=== PATIENT | male | born 1940 | race Caucasian/White ===

== ENCOUNTER 2020-12-31 11:53 | Inpatient (IN) | payer MEDICARE, OTHER ==
[2020-12-31 12:47] LABS: #Eosinphils 0.1 thou/uL (0.0-0.7); #Lymphocytes 1.6 thou/uL (1.20-3.40); #Monocytes 0.6 thou/uL (0.11-0.59); #Neutrophils 12.2 thou/uL (1.40-6.50); %Basophils 0.3 % (0.0-1.0); %Eosinophils 0.8 % (0.0-10.0); %Neutrophils 83.8 % (42.0-75.0); Hemoglobin 13.9 g/dL (14.0-18.0); Mean Corpuscular HGB CONC 33.1 g/dL (32.0-36.0); Mean Corpuscular Hemoglobin 31.8 pg (27.0-31.0); Mean Platelet Volume 6.4 fL (7.4-10.4); Platelet Count 226 thou/uL (130-400); RBC Distribution Width 12.7 % (11.5-14.5); Red Blood Cell (RBC) Count 4.39 mill/uL (4.70-6.10); White Blood Cell (WBC) Count 14.6 thou/uL (4.8-10.8)
[2020-12-31 13:05] LABS: ALT (SGPT) 16 U/L (8-55); AST (SGOT) 33 U/L (5-34); Alkaline Phosphatase 54 U/L (40-110); Anion Gap 14 mmol/L (10-20); BUN (Urea Nitrogen) 14 mg/dL (8.4-25.7); Bilirubin, Total 0.5 mg/dL (0.2-1.2); CK (CPK) 163 U/L (30-200); Calc. Creatinine Clearance 0 mL/min (70-130); Calcium 9.5 mg/dL (7.8-10.44); Carbon Dioxide 23 mmol/L (23-31); Chloride 107 mmol/L (98-107); Globulin 3.2 g/dL (2.4-3.5); Glucose 117 mg/dL (83-110); Lipase 19 U/L (8-78); Protein, Total 7.2 g/dL (5.8-8.1); Sodium 140 mmol/L (136-145)
[2020-12-31] MEDS ORDERED: Aspirin Chewable 81 MG TAB ONE (13:21)
[2020-12-31] MEDS ORDERED: Nitroglycerin 2% Ointment 1 INCH/1 GM Packet ONE (13:21)
[2020-12-31] MEDS ORDERED: Enoxaparin Sodium 100 MG/ML SYRINGE ONE (13:37)
[2020-12-31 13:41] LABS: CKMB 23.3 ng/mL (0-6.6)
[2020-12-31] MEDS ORDERED: Ondansetron PF 4 MG/2 ML Vial ONE (14:18)
[2020-12-31] MEDS ORDERED: Aspirin Chewable 81 MG TAB PO SCH (15:30)
[2020-12-31] MEDS ORDERED: Nitroglycerin 0.4 MG TAB (25 Tab Bottle) SL PRN (15:30)
[2020-12-31 16:37] LABS: Hemoglobin A1c 5.5 % (4.0-6.0)
[2020-12-31 17:47] LABS: Troponin I 10.403 ng/mL (< 0.028)
[2020-12-31 18:04] LABS: Prothrombin Time 13.4 sec (12.0-14.7)
[2020-12-31 19:48] LABS: Troponin I 13.589 ng/mL (< 0.028)
[2020-12-31] MEDS ORDERED: Metoprolol Tartrate 25 MG TAB PO SCH (21:00)
[2020-12-31] MEDS: Atorvastatin Calcium 40 MG TAB PO SCH (22:00)
[2020-12-31 22:45] LABS: Troponin I 22.192 ng/mL (< 0.028)
[2020-12-31] MEDS ORDERED: Mag-Al 1200 mg/1200 mg/30 ML UDCUP PO SCH (23:00)
[2020-12-31] MEDS ORDERED: Famotidine 20 MG TAB ONE (23:04)
[2020-12-31] MEDS ORDERED: Mag-Al 1200 mg/1200 mg/30 ML UDCUP ONE (23:04)
[2020-12-31 23:11] VITALS: BMI 31.4
[2020-12-31] MEDS ORDERED: Famotidine 20 MG TAB PO SCH (23:30)
[2021-01-01] MEDS ORDERED: Enoxaparin Sodium 100 MG/ML SYRINGE SC SCH ×3 (01:00→09:00)
[2021-01-01] MEDS ORDERED: Enoxaparin Sodium 100 MG/ML SYRINGE ONE (01:25)
[2021-01-01 01:42] LABS: Troponin I 23.435 ng/mL (< 0.028)
[2021-01-01 05:10] LABS: #Eosinphils 0.3 thou/uL (0.0-0.7); #Lymphocytes 1.4 thou/uL (1.20-3.40); #Monocytes 0.7 thou/uL (0.11-0.59); #Neutrophils 7.3 thou/uL (1.40-6.50); %Basophils 0.5 % (0.0-1.0); %Eosinophils 2.6 % (0.0-10.0); %Lymphocytes 14.7 % (21.0-51.0); %Monocytes 7.5 % (0.0-10.0); %Neutrophils 74.8 % (42.0-75.0); Mean Corpuscular HGB CONC 32.8 g/dL (32.0-36.0); Mean Corpuscular Hemoglobin 31.6 pg (27.0-31.0); Mean Corpuscular Volume 96.3 fL (78.0-98.0); Mean Platelet Volume 6.5 fL (7.4-10.4); Platelet Count 214 thou/uL (130-400); RBC Distribution Width 12.4 % (11.5-14.5); Red Blood Cell (RBC) Count 3.79 mill/uL (4.70-6.10); White Blood Cell (WBC) Count 9.8 thou/uL (4.8-10.8)
[2021-01-01 05:31] LABS: Anion Gap 11 mmol/L (10-20); BUN (Urea Nitrogen) 17 mg/dL (8.4-25.7); Calc. Creatinine Clearance 86 mL/min (70-130); Calcium 9.1 mg/dL (7.8-10.44); Carbon Dioxide 29 mmol/L (23-31); Chloride 106 mmol/L (98-107); Cholesterol 133 mg/dl (< 200 Desired); Glucose 100 mg/dL (83-110); HDL Cholesterol 44 mg/dL (>60 Neg Risk); LDL Cholesterol, Calculated 72 mg/dL; Sodium 142 mmol/L (136-145); Triglycerides 87 mg/dL (Less than 150)
[2021-01-01 05:38] LABS: Troponin I 20.599 ng/mL (< 0.028)
[2021-01-01] MEDS ORDERED: Iopamidol 370 76% 100 ML VIAL ONE (09:51)
[2021-01-01] MEDS ORDERED: Iopamidol 370 76% 50 ML VIAL FS ONE (09:51)
[2021-01-01] MEDS ORDERED: Famotidine 20 MG TAB ONE (10:23)
[2021-01-01] MEDS: Famotidine 20 MG TAB PO SCH ×2 (10:27→19:56)
[2021-01-01 11:37] LABS: SARS-CoV-2 PCR by NAA Not Detected (NotDetected)
[2021-01-01 12:37] LABS: Critical Call Chem Troponin I RESULT DECREASING
[2021-01-01] MEDS ORDERED: Lidocaine 1% (PF) 30 ML VIAL ONE (12:51)
[2021-01-01] MEDS ORDERED: Heparin 10,000 UNITS/ 10 ML VIAL ONE (14:04)
[2021-01-01] MEDS ORDERED: TICAGRELOR 90 MG TABLET ONE (14:06)
[2021-01-01] MEDS ORDERED: Adenosine 6 MG/2 ML VIAL ONE (14:15)
[2021-01-01] MEDS ORDERED: Sodium Chloride 0.9% 500 ML IV SCH (14:30)
[2021-01-01] MEDS ORDERED: Promethazine HCl 12.5 MG in Sodium Chloride 0.9% 50 ML IVPB PRN (20:17)
[2021-01-01] MEDS ORDERED: Ondansetron PF 4 MG/2 ML Vial IVP PRN (20:17)
[2021-01-01] MEDS: Ondansetron PF 4 MG/2 ML Vial IVP PRN ×2 (20:41→20:42)
[2021-01-01] MEDS: TICAGRELOR 90 MG TABLET PO SCH (20:42)
[2021-01-01] MEDS: Atorvastatin Calcium 40 MG TAB PO SCH (20:42)
[2021-01-02 04:45] LABS: #Eosinphils 0.2 thou/uL (0.0-0.7); #Lymphocytes 1.3 thou/uL (1.20-3.40); #Monocytes 0.7 thou/uL (0.11-0.59); #Neutrophils 6.1 thou/uL (1.40-6.50); %Basophils 0.3 % (0.0-1.0); %Lymphocytes 15.9 % (21.0-51.0); %Monocytes 7.9 % (0.0-10.0); Hemoglobin 11.9 g/dL (14.0-18.0); Mean Corpuscular HGB CONC 33.5 g/dL (32.0-36.0); Mean Corpuscular Volume 95.7 fL (78.0-98.0); Mean Platelet Volume 6.5 fL (7.4-10.4); Platelet Count 205 thou/uL (130-400); RBC Distribution Width 12.5 % (11.5-14.5); Red Blood Cell (RBC) Count 3.73 mill/uL (4.70-6.10); White Blood Cell (WBC) Count 8.4 thou/uL (4.8-10.8)
[2021-01-02 05:06] LABS: ALT (SGPT) 18 U/L (8-55); AST (SGOT) 49 U/L (5-34); Albumin 3.4 g/dL (3.4-4.8); Alkaline Phosphatase 45 U/L (40-110); Anion Gap 9 mmol/L (10-20); BUN (Urea Nitrogen) 15 mg/dL (8.4-25.7); Bilirubin, Total 0.7 mg/dL (0.2-1.2); Calc. Creatinine Clearance 91 mL/min (70-130); Calcium 8.7 mg/dL (7.8-10.44); Carbon Dioxide 30 mmol/L (23-31); Chloride 104 mmol/L (98-107); Globulin 2.6 g/dL (2.4-3.5); Glucose 90 mg/dL (83-110); Potassium 3.8 mmol/L (3.5-5.1); Sodium 139 mmol/L (136-145)
[2021-01-02] MEDS: Aspirin Chewable 81 MG TAB PO SCH (09:12)
[2021-01-02] MEDS: TICAGRELOR 90 MG TABLET PO SCH ×2 (09:13→21:33)
[2021-01-02] MEDS: Famotidine 20 MG TAB PO SCH ×2 (09:13→21:33)
[2021-01-02] MEDS ORDERED: Enoxaparin Sodium 40 MG/0.4 ML SYRINGE SC SCH (15:45)
[2021-01-02] MEDS: Carvedilol 3.125 MG TAB PO SCH (16:46)
[2021-01-02] MEDS: Atorvastatin Calcium 40 MG TAB PO SCH (21:33)
[2021-01-03] MEDS ORDERED: Lisinopril 2.5 MG TAB PO SCH (09:00)
[2021-01-03] MEDS: Aspirin Chewable 81 MG TAB PO SCH (09:53)
[2021-01-03] MEDS: TICAGRELOR 90 MG TABLET PO SCH ×2 (09:53→21:24)
[2021-01-03] MEDS: Famotidine 20 MG TAB PO SCH ×2 (09:54→21:25)
[2021-01-03] MEDS: Carvedilol 3.125 MG TAB PO SCH ×2 (09:54→17:34)
[2021-01-03] MEDS: Lisinopril 2.5 MG TAB PO SCH (09:54)
[2021-01-03] MEDS: Enoxaparin Sodium 40 MG/0.4 ML SYRINGE SC SCH (09:55)
[2021-01-03] MEDS: Atorvastatin Calcium 40 MG TAB PO SCH (21:25)
[2021-01-04 05:03] LABS: #Eosinphils 0.5 thou/uL (0.0-0.7); #Lymphocytes 1.3 thou/uL (1.20-3.40); #Monocytes 0.6 thou/uL (0.11-0.59); #Neutrophils 6.2 thou/uL (1.40-6.50); %Basophils 0.6 % (0.0-1.0); %Eosinophils 5.3 % (0.0-10.0); %Neutrophils 72.1 % (42.0-75.0); Mean Corpuscular HGB CONC 32.2 g/dL (32.0-36.0); Mean Corpuscular Volume 96.5 fL (78.0-98.0); Mean Platelet Volume 6.9 fL (7.4-10.4); Platelet Count 218 thou/uL (130-400); RBC Distribution Width 12.6 % (11.5-14.5); Red Blood Cell (RBC) Count 3.87 mill/uL (4.70-6.10); White Blood Cell (WBC) Count 8.5 thou/uL (4.8-10.8)
[2021-01-04 05:32] LABS: Anion Gap 11 mmol/L (10-20); BUN (Urea Nitrogen) 16 mg/dL (8.4-25.7); Calc. Creatinine Clearance 82 mL/min (70-130); Calcium 8.7 mg/dL (7.8-10.44); Carbon Dioxide 27 mmol/L (23-31); Chloride 104 mmol/L (98-107); Glucose 102 mg/dL (83-110); Potassium 3.7 mmol/L (3.5-5.1); Sodium 138 mmol/L (136-145)
[2021-01-04] MEDS: Aspirin Chewable 81 MG TAB PO SCH (09:11)
[2021-01-04] MEDS: Enoxaparin Sodium 40 MG/0.4 ML SYRINGE SC SCH (09:11)
[2021-01-04] MEDS: Lisinopril 2.5 MG TAB PO SCH (09:12)
[2021-01-04] MEDS: Famotidine 20 MG TAB PO SCH (09:12)
[2021-01-04] MEDS: Carvedilol 3.125 MG TAB PO SCH ×2 (09:12→16:32)
[2021-01-04] MEDS: TICAGRELOR 90 MG TABLET PO SCH (09:12)
[2021-01-04 15:56] VITALS: BP 111/59; TEMP 97.8
== END 2021-01-04 17:14 | disposition home or self-care (01) | DRG 247 ==
LOC: ERS 11:53 → OBSVTOIN 15:31 → EEVIPCON 15:31 → ERHOLD 15:31 → 2NO 16:07
PROVIDERS: ADMIT Internal Medicine; ATTEND Internal Medicine
PROC: 027034Z Dilation of Coronary Artery, One Artery with Drug-eluting Intraluminal Device, Percutaneous Approach (ICD-10-PCS; principal; 2021-01-01)
PROC: 4A023N7 Measurement of Cardiac Sampling and Pressure, Left Heart, Percutaneous Approach (ICD-10-PCS; 2021-01-01)
PROC: B2111ZZ Fluoroscopy of Multiple Coronary Arteries using Low Osmolar Contrast (ICD-10-PCS; 2021-01-01)
DX: I21.4 Non-ST elevation (NSTEMI) myocardial infarction (principal); I10 Essential (primary) hypertension; E78.5 Hyperlipidemia, unspecified; I25.10 Atherosclerotic heart disease of native coronary artery without angina pectoris; J44.9 Chronic obstructive pulmonary disease, unspecified; Z20.822 Contact with and (suspected) exposure to COVID-19; Z87.891 Personal history of nicotine dependence; Z90.89 Acquired absence of other organs; Z98.890 Other specified postprocedural states
CPT/HCPCS: 36415; 36416; 71045; 80048; 80053; 80061; 82550; 82553; 83036; 83690; 84484; 85025; 85347; 85610; 85730; 92928; 93005; 93010; 93306; 93798; 94640; 96372; C1769; C9600; J0153; J1644; J1650; J2001; J2405; J7620; Q9967; U0003; U0005

== ENCOUNTER 2021-01-06 15:57 | Inpatient (IN) | payer OTHER ==
[~2021-01-06 15:57] MED LIST: Iopamidol-370 76% 500 ML 1 ML ONE
[2021-01-06 16:58] LABS: #Monocytes 0.4 thou/uL (0.11-0.59); #Neutrophils 12.4 thou/uL (1.40-6.50); %Basophils 0.2 % (0.0-1.0); %Eosinophils 0.2 % (0.0-10.0); %Lymphocytes 7.4 % (21.0-51.0); %Monocytes 2.9 % (0.0-10.0); %Neutrophils 89.2 % (42.0-75.0); Hemoglobin 12.6 g/dL (14.0-18.0); Mean Corpuscular HGB CONC 32.6 g/dL (32.0-36.0); Mean Corpuscular Hemoglobin 31.1 pg (27.0-31.0); Mean Corpuscular Volume 95.4 fL (78.0-98.0); Mean Platelet Volume 6.8 fL (7.4-10.4); Platelet Count 242 thou/uL (130-400); RBC Distribution Width 12.9 % (11.5-14.5); Red Blood Cell (RBC) Count 4.04 mill/uL (4.70-6.10); White Blood Cell (WBC) Count 13.9 thou/uL (4.8-10.8)
[2021-01-06 17:20] LABS: ALT (SGPT) 84 U/L (8-55); AST (SGOT) 116 U/L (5-34); Albumin 4.1 g/dL (3.4-4.8); Alkaline Phosphatase 70 U/L (40-110); Anion Gap 12 mmol/L (10-20); BUN (Urea Nitrogen) 13 mg/dL (8.4-25.7); Calc. Creatinine Clearance 0 mL/min (70-130); Calcium 10.2 mg/dL (7.8-10.44); Carbon Dioxide 27 mmol/L (23-31); Chloride 103 mmol/L (98-107); Glucose 190 mg/dL (83-110); Lipase 909 U/L (8-78); Potassium 4.4 mmol/L (3.5-5.1); Protein, Total 7.1 g/dL (5.8-8.1); Sodium 138 mmol/L (136-145)
[2021-01-06 17:50] LABS: CKMB 5.3 ng/mL (0-6.6)
[2021-01-06] MEDS ORDERED: Ondansetron PF 4 MG/2 ML Vial ONE (18:08)
[2021-01-06] MEDS ORDERED: Promethazine HCl 25 MG/ML VIAL ONE (19:53)
[2021-01-06] MEDS ORDERED: Ondansetron ODT 4 MG TAB PO PRN (20:17)
[2021-01-06] MEDS ORDERED: HYDROcodone/Acetaminophen 5/325 mg Tablet PO PRN (20:17)
[2021-01-06] MEDS ORDERED: Acetaminophen 325 MG TAB PO PRN (20:17)
[2021-01-06] MEDS ORDERED: Morphine 4 MG/ML VIAL SLOW IVP PRN (20:21)
[2021-01-06 20:39] LABS: Critical Call Chem Troponin I RESULT DECREASING; Troponin I 0.504 ng/mL (< 0.028)
[2021-01-06] MEDS ORDERED: Sodium Chloride 0.9% 1,000 ML IV SCH (21:30)
[2021-01-06] MEDS: Ondansetron PF 4 MG/2 ML Vial IVP PRN (23:14)
[2021-01-06 23:23] LABS: #Lymphocytes 1.2 thou/uL (1.20-3.40); #Monocytes 0.4 thou/uL (0.11-0.59); #Neutrophils 10.9 thou/uL (1.40-6.50); %Eosinophils 0.1 % (0.0-10.0); %Lymphocytes 9.7 % (21.0-51.0); %Monocytes 3.2 % (0.0-10.0); Mean Corpuscular HGB CONC 33.2 g/dL (32.0-36.0); Mean Corpuscular Hemoglobin 31.8 pg (27.0-31.0); Mean Corpuscular Volume 95.6 fL (78.0-98.0); Mean Platelet Volume 6.9 fL (7.4-10.4); Platelet Count 212 thou/uL (130-400); White Blood Cell (WBC) Count 12.5 thou/uL (4.8-10.8)
[2021-01-06 23:29] VITALS: BMI 32.2
[2021-01-06] MEDS ORDERED: Piperacillin/Tazobactam 4.5 GM in Sodium Chloride 0.9% 100 ML IVPB SCH (23:30)
[2021-01-06] MEDS ORDERED: Promethazine HCl 12.5 MG in Sodium Chloride 0.9% 50 ML IVPB PRN (23:46)
[2021-01-06 23:52] LABS: Troponin I 0.523 ng/mL (< 0.028)
[2021-01-06] MEDS ORDERED: Pantoprazole 80 MG in Sodium Chloride 0.9% 100 ML IVPB SCH (23:59)
[2021-01-07] MEDS ORDERED: TICAGRELOR 90 MG TABLET PO SCH (00:15)
[2021-01-07] MEDS: Sodium Chloride 0.9% 1,000 ML IV SCH ×3 (00:29→21:39)
[2021-01-07 01:12] LABS: Bacteria/HPF None Seen HPF (None Seen); Bilirubin Negative (Negative); Blood, Urine 2+ (Negative); Clarity Clear (Clear); Glucose, Urine (Dipstick) Normal (Negative); Ketone, Urine 10 mg/dL (Negative); Leukocyte Negative Leu/uL (Negative); Nitrite Negative (Negative); Protein, Urine (Dipstick) 30 mg/dL (Neg-Trace); RBC/HPF 21-50 HPF (0-3); Squamous Epithelial None Seen HPF (0-3); Urobilinogen Normal mg/dL (Less than 2); WBC/HPF 0-3 HPF (0-3); pH, Urine 5.5 (5.0-9.0)
[2021-01-07 01:15] LABS: Urine Culture Reflex No No
[2021-01-07 01:41] LABS: HBCM Index 0.07 S/CO (0-0.79); HBSAg Index 0.21 S/CO (0-0.99); Hep A IgM AB Non-Reactive (NonReactive); Hep A IgM S/CO 0.07 S/CO (0-0.79); Hep B Surf Ag Non-Reactive S/CO (NonReactive); Hep C IgG Ab Non-Reactive (NonReactive); Hep C Index 0.07 S/CO (0-0.79); Hepatitis B Core IgM Abs Non-Reactive (NonReactive)
[2021-01-07 04:46] LABS: #Monocytes 0.6 thou/uL (0.11-0.59); #Neutrophils 11.5 thou/uL (1.40-6.50); %Basophils 0.1 % (0.0-1.0); %Eosinophils 0.1 % (0.0-10.0); %Lymphocytes 7.5 % (21.0-51.0); %Monocytes 4.6 % (0.0-10.0); %Neutrophils 87.7 % (42.0-75.0); Hemoglobin 11.6 g/dL (14.0-18.0); Mean Corpuscular HGB CONC 33.4 g/dL (32.0-36.0); Mean Corpuscular Hemoglobin 32.2 pg (27.0-31.0); Mean Corpuscular Volume 96.5 fL (78.0-98.0); Mean Platelet Volume 6.8 fL (7.4-10.4); Platelet Count 229 thou/uL (130-400); RBC Distribution Width 12.8 % (11.5-14.5); Red Blood Cell (RBC) Count 3.59 mill/uL (4.70-6.10); White Blood Cell (WBC) Count 13.1 thou/uL (4.8-10.8)
[2021-01-07 05:25] LABS: Anion Gap 10 mmol/L (10-20); BUN (Urea Nitrogen) 18 mg/dL (8.4-25.7); Calc. Creatinine Clearance 85 mL/min (70-130); Calcium 9.1 mg/dL (7.8-10.44); Carbon Dioxide 28 mmol/L (23-31); Chloride 106 mmol/L (98-107); Glucose 118 mg/dL (83-110); Potassium 3.8 mmol/L (3.5-5.1); Sodium 140 mmol/L (136-145)
[2021-01-07] MEDS: Mometasone 200 MCG/Formoterol 5 MCG 120 PUFF INHALER INH SCH ×2 (07:02→18:39)
[2021-01-07] MEDS: Enoxaparin Sodium 40 MG/0.4 ML SYRINGE SC SCH (08:25)
[2021-01-07] MEDS: Sucralfate 1 GM TAB PO SCH ×4 (08:25→21:39)
[2021-01-07] MEDS: Piperacillin/Tazobactam 3.375 GM in Sodium Chloride 0.9% 100 ML IVPB SCH ×3 (09:57→21:50)
[2021-01-07 10:50] LABS: ALT (SGPT) 130 U/L (8-55); AST (SGOT) 185 U/L (5-34); Albumin 3.5 g/dL (3.4-4.8); Alkaline Phosphatase 70 U/L (40-110); Bilirubin, Direct 1.9 mg/dL (0.1-0.3); Bilirubin, Total 2.7 mg/dL (0.2-1.2); Lipase 337 U/L (8-78)
[2021-01-07 12:06] LABS: SARS-CoV-2 PCR by NAA Not Detected (NotDetected)
[2021-01-07] MEDS: Ondansetron PF 4 MG/2 ML Vial IVP PRN (21:39)
[2021-01-08 05:11] LABS: #Eosinphils 0.1 thou/uL (0.0-0.7); #Lymphocytes 1.2 thou/uL (1.20-3.40); #Monocytes 0.6 thou/uL (0.11-0.59); #Neutrophils 8.9 thou/uL (1.40-6.50); %Basophils 0.1 % (0.0-1.0); %Eosinophils 0.9 % (0.0-10.0); %Lymphocytes 10.7 % (21.0-51.0); %Monocytes 5.9 % (0.0-10.0); %Neutrophils 82.4 % (42.0-75.0); Hemoglobin 11.3 g/dL (14.0-18.0); Mean Corpuscular HGB CONC 32.8 g/dL (32.0-36.0); Mean Corpuscular Hemoglobin 31.9 pg (27.0-31.0); Mean Corpuscular Volume 97.4 fL (78.0-98.0); Mean Platelet Volume 7.3 fL (7.4-10.4); Platelet Count 206 thou/uL (130-400); RBC Distribution Width 12.9 % (11.5-14.5); Red Blood Cell (RBC) Count 3.55 mill/uL (4.70-6.10); White Blood Cell (WBC) Count 10.8 thou/uL (4.8-10.8)
[2021-01-08 05:43] LABS: ALT (SGPT) 98 U/L (8-55); AST (SGOT) 83 U/L (5-34); Albumin 3.3 g/dL (3.4-4.8); Alkaline Phosphatase 73 U/L (40-110); Anion Gap 15 mmol/L (10-20); BUN (Urea Nitrogen) 15 mg/dL (8.4-25.7); Bilirubin, Total 1.1 mg/dL (0.2-1.2); Calc. Creatinine Clearance 83 mL/min (70-130); Calcium 8.4 mg/dL (7.8-10.44); Carbon Dioxide 21 mmol/L (23-31); Chloride 109 mmol/L (98-107); Globulin 2.6 g/dL (2.4-3.5); Glucose 85 mg/dL (83-110); Potassium 3.8 mmol/L (3.5-5.1); Protein, Total 5.9 g/dL (5.8-8.1); Sodium 141 mmol/L (136-145)
[2021-01-08] MEDS: Piperacillin/Tazobactam 3.375 GM in Sodium Chloride 0.9% 100 ML IVPB SCH ×3 (05:58→20:49)
[2021-01-08] MEDS: Sodium Chloride 0.9% 1,000 ML IV SCH ×3 (05:59→16:49)
[2021-01-08] MEDS: Mometasone 200 MCG/Formoterol 5 MCG 120 PUFF INHALER INH SCH ×2 (07:46→18:53)
[2021-01-08] MEDS: Enoxaparin Sodium 40 MG/0.4 ML SYRINGE SC SCH (09:19)
[2021-01-08] MEDS: Sucralfate 1 GM TAB PO SCH ×4 (09:19→20:48)
[2021-01-08] MEDS: TICAGRELOR 90 MG TABLET PO SCH ×2 (09:20→20:48)
[2021-01-09] MEDS: Sodium Chloride 0.9% 1,000 ML IV SCH ×3 (01:05→16:42)
[2021-01-09 04:40] LABS: #Eosinphils 0.1 thou/uL (0.0-0.7); #Monocytes 0.8 thou/uL (0.11-0.59); #Neutrophils 9.6 thou/uL (1.40-6.50); %Basophils 0.3 % (0.0-1.0); %Lymphocytes 8.8 % (21.0-51.0); %Monocytes 6.5 % (0.0-10.0); %Neutrophils 83.4 % (42.0-75.0); Mean Corpuscular Hemoglobin 32.5 pg (27.0-31.0); Mean Corpuscular Volume 95.6 fL (78.0-98.0); Mean Platelet Volume 6.8 fL (7.4-10.4); Platelet Count 211 thou/uL (130-400); RBC Distribution Width 12.7 % (11.5-14.5); Red Blood Cell (RBC) Count 3.38 mill/uL (4.70-6.10); White Blood Cell (WBC) Count 11.5 thou/uL (4.8-10.8)
[2021-01-09] MEDS: Piperacillin/Tazobactam 3.375 GM in Sodium Chloride 0.9% 100 ML IVPB SCH ×3 (05:07→21:40)
[2021-01-09 05:08] LABS: ALT (SGPT) 64 U/L (8-55); AST (SGOT) 41 U/L (5-34); Albumin 3.2 g/dL (3.4-4.8); Alkaline Phosphatase 67 U/L (40-110); Anion Gap 14 mmol/L (10-20); BUN (Urea Nitrogen) 12 mg/dL (8.4-25.7); Calc. Creatinine Clearance 103 mL/min (70-130); Calcium 8.1 mg/dL (7.8-10.44); Carbon Dioxide 23 mmol/L (23-31); Chloride 107 mmol/L (98-107); Globulin 2.5 g/dL (2.4-3.5); Glucose 75 mg/dL (83-110); Lipase 57 U/L (8-78); Potassium 3.7 mmol/L (3.5-5.1); Protein, Total 5.7 g/dL (5.8-8.1); Sodium 140 mmol/L (136-145)
[2021-01-09] MEDS: Mometasone 200 MCG/Formoterol 5 MCG 120 PUFF INHALER INH SCH ×2 (07:21→18:47)
[2021-01-09] MEDS: TICAGRELOR 90 MG TABLET PO SCH ×2 (09:42→20:33)
[2021-01-09] MEDS: Enoxaparin Sodium 40 MG/0.4 ML SYRINGE SC SCH (09:42)
[2021-01-09] MEDS: Sucralfate 1 GM TAB PO SCH ×2 (09:43→11:49)
[2021-01-09] MEDS ORDERED: Lidocaine 2% Viscous Solution 10 ML, Aluminum & Magnesium Hydroxide 30 ML SSW SCH (21:45)
[2021-01-10] MEDS: Sodium Chloride 0.9% 1,000 ML IV SCH ×2 (02:07→18:08)
[2021-01-10] MEDS: Piperacillin/Tazobactam 3.375 GM in Sodium Chloride 0.9% 100 ML IVPB SCH ×3 (05:42→21:10)
[2021-01-10] MEDS: Mometasone 200 MCG/Formoterol 5 MCG 120 PUFF INHALER INH SCH ×2 (06:45→18:37)
[2021-01-10] MEDS: Enoxaparin Sodium 40 MG/0.4 ML SYRINGE SC SCH (09:25)
[2021-01-10] MEDS: TICAGRELOR 90 MG TABLET PO SCH ×2 (09:25→21:11)
[2021-01-10] MEDS ORDERED: Aspirin 81 mg Enteric Coated Tablet PO SCH (14:15)
[2021-01-10] MEDS ORDERED: Atorvastatin Calcium 10 MG TAB PO SCH (21:00)
[2021-01-11 05:34] LABS: ALT (SGPT) 40 U/L (8-55); AST (SGOT) 24 U/L (5-34); Albumin 3.2 g/dL (3.4-4.8); Alkaline Phosphatase 59 U/L (40-110); Bilirubin, Direct 0.6 mg/dL (0.1-0.3); Bilirubin, Total 1.1 mg/dL (0.2-1.2); Lipase 44 U/L (8-78); Protein, Total 5.8 g/dL (5.8-8.1)
[2021-01-11] MEDS: Sodium Chloride 0.9% 1,000 ML IV SCH (05:47)
[2021-01-11] MEDS: Piperacillin/Tazobactam 3.375 GM in Sodium Chloride 0.9% 100 ML IVPB SCH (05:47)
[2021-01-11] MEDS: Mometasone 200 MCG/Formoterol 5 MCG 120 PUFF INHALER INH SCH (07:06)
[2021-01-11] MEDS: TICAGRELOR 90 MG TABLET PO SCH (08:51)
[2021-01-11] MEDS: Enoxaparin Sodium 40 MG/0.4 ML SYRINGE SC SCH (08:52)
[2021-01-11] MEDS ORDERED: Lisinopril 2.5 MG TAB PO SCH (09:00)
[2021-01-11] MEDS ORDERED: Aspirin 81 mg Enteric Coated Tablet PO SCH (09:00)
[2021-01-11 14:21] VITALS: BP 142/82; TEMP 98.2
== END 2021-01-11 13:47 | disposition home or self-care (01) | DRG 438 ==
LOC: ERS 15:57 → 2NO 18:32
PROVIDERS: ADMIT Internal Medicine; ATTEND Internal Medicine
DX: K85.10 Biliary acute pancreatitis without necrosis or infection (principal); I21.4 Non-ST elevation (NSTEMI) myocardial infarction; E87.2 Acidosis; R65.10 Systemic inflammatory response syndrome (SIRS) of non-infectious origin without acute organ dysfunction; K85.30 Drug induced acute pancreatitis without necrosis or infection; Z20.822 Contact with and (suspected) exposure to COVID-19; K29.70 Gastritis, unspecified, without bleeding; K75.9 Inflammatory liver disease, unspecified; I25.10 Atherosclerotic heart disease of native coronary artery without angina pectoris; T50.905A Adverse effect of unspecified drugs, medicaments and biological substances, initial encounter; I48.91 Unspecified atrial fibrillation; E78.00 Pure hypercholesterolemia, unspecified; I10 Essential (primary) hypertension; J44.9 Chronic obstructive pulmonary disease, unspecified; Z79.01 Long term (current) use of anticoagulants; Z79.82 Long term (current) use of aspirin; Z79.51 Long term (current) use of inhaled steroids; Z79.899 Other long term (current) drug therapy; Z95.5 Presence of coronary angioplasty implant and graft; Z87.891 Personal history of nicotine dependence
CPT/HCPCS: 36415; 71045; 74177; 76705; 80048; 80053; 80074; 80076; 80307; 81001; 82274; 82553; 83605; 83690; 84484; 85025; 87040; 93005; 96365; 96366; 96375; C9113; J1650; J2405; J2543; J2550; J3490; Q0162; Q9967; U0003; U0005

== ENCOUNTER 2021-01-13 20:06 | Inpatient (IN) | payer OTHER ==
[2021-01-13] MEDS ORDERED: Magnesium 2 GM/50 ML BAG (IN WATER) ONE (20:48)
[2021-01-13] MEDS ORDERED: methylPREDNISolone Sod Succ/PF 125 MG/2 ML VIAL ONE (20:48)
[2021-01-13 20:59] LABS: #Eosinphils 0.4 thou/uL (0.0-0.7); #Lymphocytes 0.9 thou/uL (1.20-3.40); #Monocytes 0.7 thou/uL (0.11-0.59); #Neutrophils 8.4 thou/uL (1.40-6.50); %Basophils 0.2 % (0.0-1.0); %Eosinophils 3.5 % (0.0-10.0); %Lymphocytes 8.8 % (21.0-51.0); %Monocytes 6.3 % (0.0-10.0); %Neutrophils 81.2 % (42.0-75.0); Hemoglobin 12.8 g/dL (14.0-18.0); Mean Corpuscular HGB CONC 33.6 g/dL (32.0-36.0); Mean Corpuscular Hemoglobin 32.1 pg (27.0-31.0); Mean Corpuscular Volume 95.4 fL (78.0-98.0); Mean Platelet Volume 6.5 fL (7.4-10.4); Platelet Count 299 thou/uL (130-400); RBC Distribution Width 12.9 % (11.5-14.5); Red Blood Cell (RBC) Count 3.99 mill/uL (4.70-6.10); White Blood Cell (WBC) Count 10.4 thou/uL (4.8-10.8)
[2021-01-13 21:11] LABS: PTT 30.7 sec (22.9-36.1); Prothrombin Time 13.1 sec (12.0-14.7)
[2021-01-13 21:12] LABS: D-Dimer Test 0.97 *mcg/mL (0.27-0.43)
[2021-01-13 21:19] LABS: ALT (SGPT) 31 U/L (8-55); AST (SGOT) 27 U/L (5-34); Albumin 3.9 g/dL (3.4-4.8); Alkaline Phosphatase 65 U/L (40-110); Anion Gap 17 mmol/L (10-20); BUN (Urea Nitrogen) 7 mg/dL (8.4-25.7); Bilirubin, Total 0.7 mg/dL (0.2-1.2); CK (CPK) 66 U/L (30-200); Calc. Creatinine Clearance 0 mL/min (70-130); Calcium 9.3 mg/dL (7.8-10.44); Carbon Dioxide 22 mmol/L (23-31); Chloride 102 mmol/L (98-107); Globulin 3.3 g/dL (2.4-3.5); Glucose 120 mg/dL (83-110); Lipase 50 U/L (8-78); Magnesium 1.8 mg/dL (1.6-2.6); Potassium 3.6 mmol/L (3.5-5.1); Protein, Total 7.2 g/dL (5.8-8.1); Sodium 137 mmol/L (136-145)
[2021-01-13 21:49] LABS: CKMB 4.4 ng/mL (0-6.6)
[2021-01-14 00:33] LABS: Troponin I 0.096 ng/mL (< 0.028)
[2021-01-14 03:18] LABS: Troponin I 0.103 ng/mL (< 0.028)
[2021-01-14] MEDS ORDERED: Ondansetron PF 4 MG/2 ML Vial IVP PRN (03:45)
[2021-01-14] MEDS ORDERED: Acetaminophen 325 MG TAB PO PRN (03:45)
[2021-01-14] MEDS ORDERED: Cefepime 1 GM VIAL ONE (04:11)
[2021-01-14] MEDS: Cefepime 1 GM in Sodium Chloride 0.9% 100 ML IVPB SCH ×2 (04:15→17:47)
[2021-01-14] MEDS: TICAGRELOR 90 MG TABLET PO SCH ×2 (04:40→17:47)
[2021-01-14 06:11] LABS: Troponin I 0.087 ng/mL (< 0.028)
[2021-01-14] MEDS ORDERED: methylPREDNISolone Sod Succ/PF 125 MG/2 ML VIAL ONE (06:45)
[2021-01-14] MEDS ORDERED: methylPREDNISolone Sod Succ 40 MG VIAL ONE ×2 (06:47→13:28)
[2021-01-14] MEDS: methylPREDNISolone Sod Succ 40 MG VIAL IVP SCH ×3 (06:50→17:47)
[2021-01-14] MEDS ORDERED: Aspirin Chewable 81 MG TAB ONE (08:09)
[2021-01-14] MEDS ORDERED: Iopamidol-370 76% 500 ML 1 ML ONE (08:48)
[2021-01-14] MEDS ORDERED: TICAGRELOR 90 MG TABLET PO SCH (09:00)
[2021-01-14] MEDS: Aspirin 81 mg Enteric Coated Tablet PO SCH (09:54)
[2021-01-14] MEDS: Carvedilol 3.125 MG TAB PO SCH ×2 (09:54→17:47)
[2021-01-14 17:38] VITALS: BMI 31.1
[2021-01-14] MEDS: Atorvastatin Calcium 40 MG TAB PO SCH (20:57)
[2021-01-15] MEDS: methylPREDNISolone Sod Succ 40 MG VIAL IVP SCH ×3 (00:04→11:22)
[2021-01-15] MEDS: Cefepime 1 GM in Sodium Chloride 0.9% 100 ML IVPB SCH (05:09)
[2021-01-15] MEDS: TICAGRELOR 90 MG TABLET PO SCH ×2 (05:09→17:06)
[2021-01-15 05:24] LABS: #Lymphocytes 0.6 thou/uL (1.20-3.40); #Monocytes 0.6 thou/uL (0.11-0.59); #Neutrophils 14.5 thou/uL (1.40-6.50); %Eosinophils 0.1 % (0.0-10.0); %Lymphocytes 3.8 % (21.0-51.0); %Monocytes 3.5 % (0.0-10.0); %Neutrophils 92.6 % (42.0-75.0); Hemoglobin 11.6 g/dL (14.0-18.0); Mean Corpuscular HGB CONC 33.8 g/dL (32.0-36.0); Mean Corpuscular Hemoglobin 32.7 pg (27.0-31.0); Mean Corpuscular Volume 96.7 fL (78.0-98.0); Mean Platelet Volume 6.6 fL (7.4-10.4); Platelet Count 305 thou/uL (130-400); RBC Distribution Width 13.2 % (11.5-14.5); Red Blood Cell (RBC) Count 3.54 mill/uL (4.70-6.10); White Blood Cell (WBC) Count 15.7 thou/uL (4.8-10.8)
[2021-01-15 05:47] LABS: Anion Gap 14 mmol/L (10-20); BUN (Urea Nitrogen) 17 mg/dL (8.4-25.7); Calc. Creatinine Clearance 102 mL/min (70-130); Calcium 8.8 mg/dL (7.8-10.44); Carbon Dioxide 26 mmol/L (23-31); Chloride 103 mmol/L (98-107); Glucose 145 mg/dL (83-110); Potassium 3.7 mmol/L (3.5-5.1); Sodium 139 mmol/L (136-145)
[2021-01-15] MEDS: Carvedilol 3.125 MG TAB PO SCH ×2 (08:40→17:06)
[2021-01-15] MEDS: Aspirin 81 mg Enteric Coated Tablet PO SCH (08:40)
[2021-01-15] MEDS: Cefdinir 300 MG CAP PO SCH ×2 (08:40→21:08)
[2021-01-15] MEDS ORDERED: predniSONE 20 MG TAB PO SCH (12:01)
[2021-01-15] MEDS: Atorvastatin Calcium 40 MG TAB PO SCH (21:08)
[2021-01-16] MEDS ORDERED: Promethazine HCl 12.5 MG in Sodium Chloride 0.9% 50 ML IVPB PRN (00:58)
[2021-01-16] MEDS ORDERED: Pantoprazole 40 MG VIAL IVP SCH ×2 (01:30→09:00)
[2021-01-16] MEDS ORDERED: Sucralfate 1 GM TAB PO SCH (01:30)
[2021-01-16] MEDS: TICAGRELOR 90 MG TABLET PO SCH (05:23)
[2021-01-16 06:09] LABS: #Monocytes 1.3 thou/uL (0.11-0.59); #Neutrophils 14.3 thou/uL (1.40-6.50); %Basophils 0.1 % (0.0-1.0); %Neutrophils 85.8 % (42.0-75.0); Hemoglobin 11.3 g/dL (14.0-18.0); Mean Corpuscular HGB CONC 32.3 g/dL (32.0-36.0); Mean Corpuscular Hemoglobin 31.3 pg (27.0-31.0); Mean Corpuscular Volume 96.7 fL (78.0-98.0); Mean Platelet Volume 6.2 fL (7.4-10.4); Platelet Count 323 thou/uL (130-400); RBC Distribution Width 13.3 % (11.5-14.5); Red Blood Cell (RBC) Count 3.61 mill/uL (4.70-6.10); White Blood Cell (WBC) Count 16.7 thou/uL (4.8-10.8)
[2021-01-16] MEDS: Sucralfate 1 GM TAB PO SCH ×4 (06:14→20:43)
[2021-01-16 06:27] LABS: Anion Gap 13 mmol/L (10-20); BUN (Urea Nitrogen) 25 mg/dL (8.4-25.7); Calc. Creatinine Clearance 92 mL/min (70-130); Calcium 8.8 mg/dL (7.8-10.44); Carbon Dioxide 28 mmol/L (23-31); Chloride 103 mmol/L (98-107); Glucose 116 mg/dL (83-110); Potassium 3.5 mmol/L (3.5-5.1); Sodium 140 mmol/L (136-145)
[2021-01-16] MEDS ORDERED: predniSONE 20 MG TAB PO SCH (08:00)
[2021-01-16] MEDS: Carvedilol 3.125 MG TAB PO SCH ×2 (08:00→17:19)
[2021-01-16] MEDS: Aspirin 81 mg Enteric Coated Tablet PO SCH (09:05)
[2021-01-16 14:21] LABS: Hemoglobin 11.7 g/dL (14.0-18.0)
[2021-01-16 20:19] LABS: Hemoglobin 11.6 g/dL (14.0-18.0)
[2021-01-16] MEDS: Atorvastatin Calcium 40 MG TAB PO SCH (20:43)
[2021-01-16] MEDS: Pantoprazole 40 MG VIAL IVP SCH (20:43)
[2021-01-17 06:13] LABS: #Eosinphils 0.2 thou/uL (0.0-0.7); #Lymphocytes 1.1 thou/uL (1.20-3.40); #Monocytes 0.9 thou/uL (0.11-0.59); #Neutrophils 5.9 thou/uL (1.40-6.50); %Eosinophils 2.3 % (0.0-10.0); %Lymphocytes 13.5 % (21.0-51.0); %Monocytes 10.5 % (0.0-10.0); %Neutrophils 73.7 % (42.0-75.0); Hemoglobin 11.2 g/dL (14.0-18.0); Mean Corpuscular HGB CONC 34.4 g/dL (32.0-36.0); Mean Corpuscular Hemoglobin 33.5 pg (27.0-31.0); Mean Corpuscular Volume 97.5 fL (78.0-98.0); Mean Platelet Volume 6.4 fL (7.4-10.4); Platelet Count 283 thou/uL (130-400); RBC Distribution Width 13.2 % (11.5-14.5); Red Blood Cell (RBC) Count 3.35 mill/uL (4.70-6.10)
[2021-01-17 06:31] LABS: Anion Gap 12 mmol/L (10-20); BUN (Urea Nitrogen) 19 mg/dL (8.4-25.7); Calc. Creatinine Clearance 104 mL/min (70-130); Calcium 8.7 mg/dL (7.8-10.44); Carbon Dioxide 31 mmol/L (23-31); Chloride 103 mmol/L (98-107); Glucose 100 mg/dL (83-110); Potassium 3.3 mmol/L (3.5-5.1); Sodium 143 mmol/L (136-145)
[2021-01-17] MEDS: Sucralfate 1 GM TAB PO SCH ×4 (08:34→20:09)
[2021-01-17] MEDS: Carvedilol 3.125 MG TAB PO SCH ×2 (08:34→18:34)
[2021-01-17] MEDS: Pantoprazole 40 MG VIAL IVP SCH ×2 (08:35→20:09)
[2021-01-17] MEDS ORDERED: Potassium Chloride 20 MEQ TAB PO SCH (11:15)
[2021-01-17] MEDS ORDERED: Clopidogrel Bisulfate 75 MG TAB PO SCH (20:07)
[2021-01-17] MEDS: Atorvastatin Calcium 10 MG TAB PO SCH (20:09)
[2021-01-17] MEDS ORDERED: methylPREDNISolone Sod Succ 40 MG VIAL IVP SCH (20:15)
[2021-01-17] MEDS ORDERED: Aspirin 81 mg Enteric Coated Tablet PO SCH (20:15)
[2021-01-17] MEDS ORDERED: Azithromycin 250 MG TAB PO SCH ×2 (21:00)
[2021-01-18] MEDS: Carvedilol 3.125 MG TAB PO SCH ×2 (05:42→17:25)
[2021-01-18] MEDS: Sucralfate 1 GM TAB PO SCH ×4 (05:42→21:18)
[2021-01-18] MEDS: Mometasone 100 MCG/Formoterol 5 MCG 120 PUFF INHALER INH SCH ×2 (06:49→18:58)
[2021-01-18] MEDS: Pantoprazole 40 MG VIAL IVP SCH (08:44)
[2021-01-18] MEDS: Aspirin 81 mg Enteric Coated Tablet PO SCH ×2 (10:44→14:58)
[2021-01-18] MEDS: Clopidogrel Bisulfate 75 MG TAB PO SCH ×2 (10:45→14:58)
[2021-01-18] MEDS ORDERED: Ketamine 50 MG/ML (10ML VIAL) ONE (12:19)
[2021-01-18] MEDS ORDERED: PROPOFOL 200 MG/20 ML VIAL ONE (12:41)
[2021-01-18] MEDS ORDERED: methylPREDNISolone Sod Succ 40 MG VIAL IVP SCH (16:00)
[2021-01-18] MEDS ORDERED: Azithromycin 250 MG TAB PO SCH (21:00)
[2021-01-18] MEDS: Atorvastatin Calcium 10 MG TAB PO SCH (21:18)
[2021-01-19 05:46] LABS: Hemoglobin 10.9 g/dL (14.0-18.0); Mean Corpuscular HGB CONC 33.1 g/dL (32.0-36.0); Mean Corpuscular Hemoglobin 31.9 pg (27.0-31.0); Mean Corpuscular Volume 96.5 fL (78.0-98.0); Mean Platelet Volume 6.5 fL (7.4-10.4); Platelet Count 276 thou/uL (130-400); RBC Distribution Width 12.9 % (11.5-14.5); Red Blood Cell (RBC) Count 3.41 mill/uL (4.70-6.10); White Blood Cell (WBC) Count 8.4 thou/uL (4.8-10.8)
[2021-01-19 06:02] LABS: Potassium 4.2 mmol/L (3.5-5.1)
[2021-01-19] MEDS: Mometasone 100 MCG/Formoterol 5 MCG 120 PUFF INHALER INH SCH (06:43)
[2021-01-19] MEDS: Carvedilol 3.125 MG TAB PO SCH (08:08)
[2021-01-19] MEDS: Aspirin 81 mg Enteric Coated Tablet PO SCH (08:08)
[2021-01-19] MEDS: Clopidogrel Bisulfate 75 MG TAB PO SCH (08:08)
[2021-01-19] MEDS: Sucralfate 1 GM TAB PO SCH ×2 (08:08→12:36)
[2021-01-19] MEDS ORDERED: predniSONE 20 MG TAB PO SCH (11:00)
[2021-01-19 18:00] VITALS: BP 134/64; TEMP 98
== END 2021-01-19 15:41 | disposition home or self-care (01) | DRG 368 ==
LOC: ERS 20:06 → ERHOLD 22:08 → 2NO 01-14 13:52 → T4-B 01-15 12:43
PROVIDERS: ADMIT Internal Medicine; ATTEND Internal Medicine
PROC: 0DB68ZX Excision of Stomach, Via Natural or Artificial Opening Endoscopic, Diagnostic (ICD-10-PCS; principal; 2021-01-18)
DX: K21.01 Gastro-esophageal reflux disease with esophagitis, with bleeding (principal); J96.01 Acute respiratory failure with hypoxia; I21.4 Non-ST elevation (NSTEMI) myocardial infarction; K25.4 Chronic or unspecified gastric ulcer with hemorrhage; J44.1 Chronic obstructive pulmonary disease with (acute) exacerbation; I25.10 Atherosclerotic heart disease of native coronary artery without angina pectoris; K44.9 Diaphragmatic hernia without obstruction or gangrene; E78.2 Mixed hyperlipidemia; K31.7 Polyp of stomach and duodenum; Z20.822 Contact with and (suspected) exposure to COVID-19; I10 Essential (primary) hypertension; I48.91 Unspecified atrial fibrillation; E87.6 Hypokalemia; D72.829 Elevated white blood cell count, unspecified; Z79.82 Long term (current) use of aspirin; Z79.899 Other long term (current) drug therapy; Z95.5 Presence of coronary angioplasty implant and graft; Z87.891 Personal history of nicotine dependence
CPT/HCPCS: 36415; 36416; 71045; 71275; 80048; 80053; 82550; 82553; 83605; 83690; 83735; 83880; 84132; 84443; 84484; 85025; 85027; 85379; 85610; 85730; 87040; 88305; 93005; 94640; 96365; 96375; C9113; J0692; J2405; J2704; J2920; J2930; J3475; J3490; J7512; J7620; Q9967